=== PATIENT | male | born 1990 | race Caucasian/White ===

== ENCOUNTER 2018-01-10 22:05 | Emergency (ER) | payer SELFPAY ==
[~2018-01-10] VITALS: Ht 157.5 cm; Wt 63.5 kg
[2018-01-10 22:09] VITALS: Ht 157.5 cm; Wt 63.5 kg
[2018-01-10 23:55] VITALS: BP 119/79
== END 2018-01-10 23:55 | disposition home or self-care (01) ==
LOC: ED 22:05
DX: T15.02XA Foreign body in cornea, left eye, initial encounter (principal); W22.8XXA Striking against or struck by other objects, initial encounter; Y93.89 Activity, other specified; Y92.89 Other specified places as the place of occurrence of the external cause; Y99.8 Other external cause status
CPT/HCPCS: 90715